=== PATIENT | male | born 1980 | race Caucasian/White ===

== ENCOUNTER 2021-03-04 11:50 | Inpatient (IN) | payer OTHER ==
[~2021-03-04] VITALS: Ht 182.9 cm; Wt 99.9 kg
[2021-03-04 13:36] LABS: BASOPHIL 0.3 % (0-2); EOSINOPHIL 0 % (0-5); HCT 51.7 % (42.0-52.0); HGB 17.4 g/dl (13.2-18.0); LYMPHOCYTE 10.9 % (15-48); MCH 29.7 pg (25.0-31.0); MCHC 33.7 g/dL (32.0-36.0); MCV 88.2 fL (78.0-100.0); MONOCYTE 14.2 % (0-12); NEUTROPHIL 74.3 % (41-80); NRBC 0; PLT 164 K/uL (150-400); RBC 5.86 M/uL (4.70-6.00); RDW 13.5 % (11.5-14.0); WBC 3.6 K/uL (4.0-10.5)
[2021-03-04 13:50] LABS: ALBUMIN 3.3 g/dL (3.4-5.0); BILIRUBIN - TOTAL 0.5 mg/dL (0.2-1.0); BUN/CREAT RATIO (CALC) 11.8 RATIO; CREATININE 1.1 mg/dL (0.67-1.17); GLOBULIN (CALCULATION) 3.4 g/dL; POTASSIUM 3.9 mmol/L (3.5-5.1); TOTAL PROTEIN 6.7 g/dL (6.4-8.2)
[2021-03-05] MEDS ORDERED: PROVENTIL HFA6.7 GM INH (15:01)
[2021-03-05] MEDS ORDERED: IBUPROFEN400 M1 PO (15:01)
[2021-03-05] MEDS ORDERED: TESSALON PERLE100 MG PO (15:01)
[2021-03-05] MEDS ORDERED: CLARITIN10 MG PO (15:01)
[2021-03-05] MEDS ORDERED: DEXAMETHASONE 2M2 MG PO (15:01)
--- NOTE | 2021-03-05 18:08 | NUR ---
03/05/21 A referral was made to [facility] 02.
== END 2021-03-06 10:55 | disposition home or self-care (01) | DRG 177 ==
LOC: FER 11:50 → FMS 16:06
PROVIDERS: Physician Assistant; ADMIT Allergy & Immunology Allergy
PROC: XW033E5 Introduction of Remdesivir Anti-infective into Peripheral Vein, Percutaneous Approach, New Technology Group 5 (ICD-10-PCS; principal; 2021-03-04)
PROC: 8E0ZXY6 Isolation (ICD-10-PCS; 2021-03-04)
DX: U07.1 COVID-19 (principal); J12.82 Pneumonia due to coronavirus disease 2019; J96.01 Acute respiratory failure with hypoxia; J30.2 Other seasonal allergic rhinitis; Z98.890 Other specified postprocedural states
CPT/HCPCS: 36415; 36600; 71045; 71275; 80053; 82803; 83605; 84484; 85025; 93005; 94010; 94640; C9399; J1100; J1650; J2930; J7030; J7050; Q9967